=== PATIENT | male | born 1965 | race Caucasian/White ===

== ENCOUNTER 2023-10-23 13:40 | Emergency (ER) | payer BC, OTHER ==
[2023-10-23] MEDS ORDERED: Sodium Chloride 0.9% 10 ML Syringe FLUSH PRN (14:05)
[2023-10-23 14:26] LABS: BASOPHILS PERCENT AUTO 0.6 % (0.3-3.8); EOSINOPHILS ABSOLUTE AUTO 0.1 x10-3/uL (0.0-0.6); HEMOGLOBIN 14.7 g/dL (12.9-17.7); LYMPHOCYTES ABSOLUTE AUTO 2.8 x10-3/uL (0.5-4.5); MEAN CORPUSCULAR HEMOGLOBIN 30.2 pg (27.0-33.3); MEAN CORPUSCULAR HGB CONC 34.2 g/dL (28.7-35.3); MEAN CORPUSCULAR VOLUME 88.2 fL (80.8-98.7); MEAN PLATELET VOLUME 7.8 fL (6.7-11.0); MONOCYTES ABSOLUTE AUTO 0.6 x10-3/uL (0.0-1.2); MONOCYTES PERCENT AUTO 7.1 % (5.5-15.2); NEUTROPHILS ABSOLUTE AUTO 4.4 x10-3/uL (1.7-6.9); NEUTROPHILS PERCENT AUTO 56.3 % (40.3-71.8); PLATELET COUNT,PLT 188 x10(3)uL (117-477); RED BLOOD CELL COUNT 4.88 x10(6)uL (3.90-5.90); RED CELL DISTRIBUTION WIDTH 13.3 % (12.4-15.0); WHITE BLOOD CELL COUNT,WBC 7.9 x10-3/uL (3.2-10.1)
[2023-10-23 14:33] LABS: BLOOD UREA NITROGEN,BUN 20 mg/dL (7-18); CALCIUM 8.8 mg/dL (8.6-10.2); CARBON DIOXIDE,CO2 25 mmol/L (21-32); CHLORIDE,CL 101 mmol/L (100-110); CREATININE 0.8 mg/dL (0.70-1.30); EST CRCL DRUG DOSING (CG) 97.38 mL/min; ESTIMATED GFR 103 mL/min (>60); GLUCOSE RANDOM 131 mg/dL (80-116); POTASSIUM,K 3.9 mmol/L (3.5-5.3); SODIUM,NA 136 mmol/L (135-145)
[2023-10-23 14:38] LABS: A/G RATIO 0.8; ALANINE AMINOTRANSFERASE,ALT 37 U/L (12-36); ALBUMIN 3.4 g/dL (3.5-5.2); ALKALINE PHOSPHATASE 73 IU/L (56-112); ASPARTATE AMNIOTRANSFERASE,AST 25 IU/L (5-25); BILIRUBIN TOTAL 0.6 mg/dL (0.1-1.3); MAGNESIUM 2.2 mg/dL (1.8-2.5); PROTEIN TOTAL,TP 7.7 g/dL (6.0-8.0)
[2023-10-23 14:58] LABS: SEDIMENTATION RATE MANUAL 40 mm/hr (0-15)
[2023-10-23 15:45] LABS: BILIRUBIN,URINE NEGATIVE (NEGATIVE); GLUCOSE,URINE NORMAL (NORMAL); KETONES,URINE 15 mg/dL (NEGATIVE); LEUKOCYTE ESTERASE,URINE NEGATIVE (NEGATIVE); NITRITE,URINE NEGATIVE (NEGATIVE); OCCULT BLOOD,URINE NEGATIVE (NEGATIVE); PROTEIN,URINE TRACE mg/dL (NEGATIVE); UROBILINOGEN,URINE NORMAL (NEGATIVE)
[2023-10-23 15:49] LABS: APPEARANCE,URINE CLEAR (CLEAR); BACTERIA,URINE FEW (NS); COLOR,URINE YELLOW (YELLOW); MUCUS,URINE FEW (NS); RBC,URINE 0-5 (0-5); SQUAMOUS EPITHELIAL CELLS,UR OCCASIONAL (NS,R,O); WBC,URINE 0-5 (0-5)
[2023-10-23] MEDS: amLODIPine 5 MG Tab PO ONE (16:29)
[2023-10-23] MEDS: Ondansetron 4 MG/2 ML SDV IVPUSH ONE (16:29)
[2023-10-23] MEDS: Sodium Chloride 0.9% 500 ML IV ONE (16:29)
[2023-10-23] MEDS: Meclizine 25 MG Tab PO ONE ×2 (16:29→18:20)
[2023-10-23 17:15] LABS: INFLUENZA A NAA NEGATIVE (NEGATIVE); INFLUENZA B NAA NEGATIVE (NEGATIVE); RESPIRATORY SYNCYTIAL VIR NAA NEGATIVE (NEGATIVE)
[2023-10-23 17:30] LABS: CORONAVIRUS COVID-19 NAA NEGATIVE (NEGATIVE)
[2023-10-23] MEDS: Diazepam 5 MG Tab PO ONE (18:21)
== END 2023-10-23 18:23 | disposition home or self-care (01) ==
LOC: FB.ED 13:40
DX: R42 Dizziness and giddiness (principal); H83.09 Labyrinthitis, unspecified ear; I10 Essential (primary) hypertension
CPT/HCPCS: 0241U; 36415; 70450; 80053; 81001; 83735; 85025; 85651; 86140; 93005; 93010; 96361; 96374; 96375; 99283; 99284; A9270; J2405; J3360; J7040